=== PATIENT | female | born 2000 ===

== ENCOUNTER 2021-01-18 18:25 | Emergency (ER) | payer OTHER ==
[~2021-01-18] VITALS: Ht 165.1 cm; Wt 65.0 kg
[2021-01-18 18:37] VITALS: TEMP 98.9
[2021-01-18] MEDS ORDERED: TRIAMCINOLONE A15 GM TP (20:22)
[2021-01-18 20:35] VITALS: BP 112/70; PULSE 77
== END 2021-01-18 20:35 | disposition home or self-care (01) ==
LOC: COL.ER 18:25
DX: U07.1 COVID-19 (principal); Z88.2 Allergy status to sulfonamides; Z88.1 Allergy status to other antibiotic agents